=== PATIENT | female | born 1995 | race Caucasian/White ===

== ENCOUNTER 2018-02-06 12:55 | Inpatient (IN) | payer OTHER ==
[2018-02-06] MEDS ORDERED: OXYTOCIN 30 UNITS/LR 500 ML IV (16:30)
[2018-02-06] MEDS ORDERED: METHYLERGONOVINE 0.2 MG INJ IM (16:30)
[2018-02-06] MEDS ORDERED: CARBOPROST 250 MCG INJ IM (16:30)
[2018-02-06] MEDS ORDERED: MISOPROSTOL 200 MCG TAB PR (16:30)
[2018-02-06] MEDS ORDERED: LIDOCAINE 1% (MPF) 30 ML INJ INJ (16:30)
[2018-02-06 16:36] LABS: ADD MAN DIFF? NO
[2018-02-06 16:39] LABS: WHITE BLOOD COUNT 11.7 10^3/ul (4.8-10.8)
[2018-02-06 16:39] LABS: ABNORMAL IP MESSAGE 1; BASOPHILS % 0.3 % (0.0-2.0); EOSINOPHILS % 0.2 % (0.0-7.0); HEMATOCRIT 32.3 % (37.0-47.0); HEMOGLOBIN 10.7 g/dl (12.0-16.0); LYMPHOCYTES % 17.2 % (15.0-51.0); MEAN CORPUSCULAR HGB CONC 33.1 g/dl (32.0-37.0); MEAN CORPUSCULAR VOLUME 93.6 fl (82.0-101.0); MEAN PLATELET VOLUME 13.7 fl (7.4-10.4); MONOCYTE # 0.7 10^3/ul (0.3-0.9); MONOCYTES % 6.3 % (0.0-11.0); NEUTROPHIL # 8.9 10^3/ul (1.6-7.5); NEUTROPHILS % 75.5 % (39.0-77.0); PLATELET COUNT 236 10^3/UL (140-415); RED BLOOD COUNT 3.45 10^6/ul (4.20-5.40); RED CELL DISTRIBUTION WIDTH 15.3 % (11.5-14.5)
[2018-02-06 16:43] LABS: INR 0.82; PROTIME 11.3 Sec (11.9-14.9); PT RATIO 0.9
[2018-02-06 16:44] LABS: PARTIAL THROMBOPLASTIN TIME 27.7 Sec (25.0-35.0)
[2018-02-06 17:04] LABS: POSITIVE DIFF @See below
[2018-02-06] MEDS: LACTATED RINGER'S 1,000 ML IV* (19:10)
[2018-02-06] MEDS: AMPICILLIN 2 GM/NS (PMX) 100 ML IV (21:02)
[2018-02-06 21:10] LABS: GLUCOSE 81 mg/dl (70-220)
[2018-02-07] MEDS: OXYTOCIN 30 UNITS/LR 500 ML IV ×3 (00:39→12:51)
[2018-02-07] MEDS: AMPICILLIN 1 GM/NS (PMX) 50 ML IV ×2 (00:41→05:02)
[2018-02-07] MEDS: LACTATED RINGER'S 1,000 ML IV* ×2 (03:18→04:50)
[2018-02-07] MEDS ORDERED: IBUPROFEN 600 MG TAB PO (03:30)
[2018-02-07] MEDS ORDERED: BUTORPHANOL 2 MG INJ IV (03:30)
[2018-02-07] MEDS ORDERED: OXYTOCIN 30 UNITS/LR 500 ML IV ×4 (03:30→09:30)
[2018-02-07] MEDS ORDERED: FENTAnyl 2MCG/ML-ROPIV 0.2% 100 ML (04:31)
[2018-02-07] MEDS ORDERED: EPHEDrine SULFATE 50 MG/5 ML SYG IV (05:00)
[2018-02-07] MEDS ORDERED: ONDANSETRON 4 MG INJ IV ×2 (05:00→09:30)
[2018-02-07] MEDS ORDERED: DIPHENHYDRAMINE 50 MG INJ IV (05:00)
[2018-02-07] MEDS ORDERED: NALOXONE (0.4 MG/ML) INJ IV (05:00)
[2018-02-07] MEDS: FENTAnyl 2MCG/ML-ROPIV 0.2% 100 ML BAG EPI (05:22)
[2018-02-07 08:43] LABS: Arterial Cord Blood pCO2 59.6 mmHG (25-50); CBA Base Excess -0.3 mmol/L; CBA COHb 0.3 %; CBA Total Hemglobin 16.5 g/dl; Fraction OxyHgb Cord Arterial 12.3 %; MODE ROOM AIR; MetHgb Cord Arterial 1.9 %; Sample Type CBA; Site CORD
[2018-02-07 09:10] LABS: Allen Test ACCEPTAB; Blood Gas IEPAP 15/5; Blood Gas PS 10; CBV Base Excess 1.4 mmol/L; CBV COHb 0.3 %; CBV Oxygen Sat 98.8 mmHG; CBV Total Hemglobin 12.1 g/dl; Cord Blood Venous AADO2 86.3 mmHg; Cord Blood Venous pO2 148.3 mmHG (15.0-45.0); Fraction OxyHgb Cord Venous 98.1 %; MODE MASK - BIPAP; MetHgb Cord Venous 0.4 %; Site Right Radial
[2018-02-07] MEDS ORDERED: METHYLERGONOVINE 0.2 MG INJ IM (09:30)
[2018-02-07] MEDS ORDERED: NACL 0.9% 3 ML SYG IV (09:30)
[2018-02-07] MEDS ORDERED: CARBOPROST 250 MCG INJ IM (09:30)
[2018-02-07] MEDS ORDERED: ZOLPIDEM 5 MG TAB PO (09:30)
[2018-02-07] MEDS ORDERED: HYDROCODONE/APAP (5/325) TAB PO (09:30)
[2018-02-07] MEDS ORDERED: MISOPROSTOL 200 MCG TAB PR (09:30)
[2018-02-07] MEDS ORDERED: DIPHENHYDRAMINE 25 MG CAP PO (09:30)
[2018-02-07] MEDS: IBUPROFEN 600 MG TAB PO ×3 (12:21→23:45)
[2018-02-07 14:57] LABS: RAPID PLASMA REAGIN NONREACTIVE (NR)
[2018-02-07] MEDS: WITCH HAZEL/GLYCERIN PAD PR (16:55)
[2018-02-07] MEDS: SENNA/DOCUSATE NA (8.6MG/50MG) TAB PO (21:13)
[2018-02-08] MEDS: IBUPROFEN 600 MG TAB PO ×3 (05:36→17:45)
[2018-02-08] MEDS: SENNA/DOCUSATE NA (8.6MG/50MG) TAB PO ×3 (11:08→21:00)
[2018-02-08 11:16] LABS: ADD MAN DIFF? NO
[2018-02-08 11:19] LABS: BASOPHILS % 0.2 % (0.0-2.0); EOSINOPHILS % 0.3 % (0.0-7.0); HEMATOCRIT 28.7 % (37.0-47.0); HEMOGLOBIN 9.4 g/dl (12.0-16.0); LYMPHOCYTES # 2.5 10^3/ul (0.8-2.9); MEAN CORPUSCULAR HEMOGLOBIN 30.6 pg (29.0-33.0); MEAN CORPUSCULAR HGB CONC 32.8 g/dl (32.0-37.0); MEAN CORPUSCULAR VOLUME 93.5 fl (82.0-101.0); MEAN PLATELET VOLUME 12.8 fl (7.4-10.4); MONOCYTE # 0.7 10^3/ul (0.3-0.9); MONOCYTES % 5.4 % (0.0-11.0); NEUTROPHIL # 9.1 10^3/ul (1.6-7.5); NEUTROPHILS % 73.6 % (39.0-77.0); PLATELET COUNT 197 10^3/UL (140-415); RED BLOOD COUNT 3.07 10^6/ul (4.20-5.40); RED CELL DISTRIBUTION WIDTH 15.7 % (11.5-14.5)
[2018-02-08 11:19] LABS: WHITE BLOOD COUNT 12.4 10^3/ul (4.8-10.8)
[2018-02-08] MEDS: MEASLES,MUMPS,RUBELLA VACCINE INJ SC* (17:51)
[2018-02-08] MEDS: VARICELLA VACCINE LIVE/PF 1,350 UNIT/0.5 ML ML SC* (17:51)
[2018-02-09] MEDS: IBUPROFEN 600 MG TAB PO ×2 (00:27→06:04)
[2018-02-09] MEDS: SENNA/DOCUSATE NA (8.6MG/50MG) TAB PO (08:43)
[2018-02-09] MEDS: DIPHTH/TET/ACEL PERTUSS (ADULT) 0.5 ML VIAL IM* (09:39)
== END 2018-02-09 10:15 | disposition home or self-care (01) | DRG 775 ==
LOC: OBT 12:55 → L-D 12:55 → PP1 02-07 17:11 → OBT 17:00 → L-D 17:00
PROVIDERS: Obstetrics & Gynecology
PROC: 10E0XZZ Delivery of Products of Conception, External Approach (ICD-10-PCS; principal; 2018-02-07)
PROC: 0UQM0ZZ Repair Vulva, Open Approach (ICD-10-PCS; 2018-02-07)
PROC: 0HQ9XZZ Repair Perineum Skin, External Approach (ICD-10-PCS; 2018-02-07)
PROC: 3E0234Z Introduction of Serum, Toxoid and Vaccine into Muscle, Percutaneous Approach (ICD-10-PCS; 2018-02-09)
DX: O36.5930 Maternal care for other known or suspected poor fetal growth, third trimester, not applicable or unspecified (principal); O70.0 First degree perineal laceration during delivery; O69.81X0 Labor and delivery complicated by cord around neck, without compression, not applicable or unspecified; Z3A.37 37 weeks gestation of pregnancy; Z37.0 Single live birth; Z23 Encounter for immunization
CPT/HCPCS: 36415; 36600; 62319; 76815; 76818; 82803; 82947; 85025; 85610; 85730; 86592; 86850; 86900; 86901; 88307; 90715